=== PATIENT | female | born 1935 | race Caucasian/White ===

== ENCOUNTER 2018-12-02 14:28 | Inpatient (IN) ==
[2018-12-02] MEDS ORDERED: 0.9 % Sodium Chloride 500 ML IVC ONE (14:48)
[2018-12-02 15:15] LABS: Hemoglobin 11.6 g/dL (11.5-15.4); Mean Corpuscular HGB Conc 32.2 g/dL (31.6-35.5); Mean Corpuscular Hemoglobin 31.3 pg (28.0-33.3); Mean Platelet Volume 11.3 fL (9.4-12.4); Platelet Count 161 K/mcL (140-400); Red Blood Count 3.71 M/mcL (3.82-4.97); Red Cell Distribution Width 12.3 % (11.5-14.5)
--- NOTE | 2018-12-02 15:22 | Emergency Department Note ---
Disposition Clinical Impression: Acute exacerbation of chronic obstructive airways disease Community acquired pneumonia Qualifiers: Laterality: unspecified laterality Qualified Code(s): J18.9 - Pneumonia, unspecified organism Disposition: Admitted As Inpatient Condition: Good General Adult HPI - General Chief complaint: ED Shortness of Breath/Dyspnea Stated complaint: REVA/flu like symptoms Time Seen by Provider: 12/02/18 14:38 Source: patient, EMS Limitations: no limitations Nursing Notes Reviewed: Yes Vital Signs Reviewed: Yes - History of Present Illness HPI Narrative: Patient presents from the primary care office and she does not have COPD and does not use home oxygen and she has had several days of cough productive of clear sputum without hemoptysis and shortness of breath which is worse with exertion and denies any chest pain. No pain or swelling of the lower extremities. No blood in the urine or stool. No dysuria. Does have rhinorrhea and sneezing also. She has felt warm but has not recorded a fever and is using a breathing machine but is not taking and has not taken any antibiotics. Social history: Never smoked Pain Scale: 0 - Related Data Home Medications Medication Instructions Recorded Confirmed RX: Temazepam [Restoril] 15 mg PO HS 11/08/15 12/02/18 RX: Albuterol Sulfate [Proair Hfa] 2 puff IH Q6H PRN 12/02/18 12/02/18 Previous Rx's Medication Instructions Recorded RX: Benzonatate [Tessalon] 200 mg PO TID PRN 4 Days #12 12/06/18 capsule RX: GuaiFENesin ER [Mucinex] 1,200 mg PO BID 4 Days #8 tbbp.12hr 12/06/18 RX: Warfarin [Coumadin] 2.5 mg PO DAILY #0 12/06/18 predniSONE [PredniSONE] 10 mg PO DAILY 3 Days #7 tablet 12/06/18 Allergies Allergy/AdvReac Type Severity Reaction Status Date / Time No Known Allergies Allergy Verified 10/13/18 09:00 Review of Systems: Rew warm but has not recorded fever, no blurred vision. Does have rhinorrhea, cough, sneezing. No blood in the urine or stool. No pain or swelling or numbness of the extremities. No skin rash or bruising of the scan Past Medical History - Past Medical History Medical history: Reports: non-contributory, DVT, hypertension Surgical history: Reports: cholecystectomy, hysterectomy Psychiatric history: Reports: no psych history - Social History Smoking Status: Never smoker Smokeless Tobacco Status: No Alcohol use: Reports: none Drug use: Reports: none Physical Exam CONSTITUTIONAL: Alert and oriented X3, well-nourished, well appearing, in no apparent distress, oxygen saturation is ranging between 86 and 95% on room air. The patient does feel warm HEAD: Normocephalic; atraumatic. EYES: PERRL, no scleral icterus. NOSE: The nose is normal in appearance without rhinorrhea RESP: Normal chest excursion with respiration; breath sounds clear and equal bilaterally; no wheezes, rhonchi, or rales CARD: Regular rhythm, without murmurs, rub or gallop ABD: Non-distended; non-tender, soft,without rigidity, rebound or guarding SKIN: Normal for age and race; warm and dry; no apparent lesions extremities: No pain or swelling of the lower extremities. No erythema or signs of infection - General Limitations: no limitations General appearance: alert, in no apparent distress Course Vital Signs Temperature 99.6 F 12/02/18 14:34 Pulse Rate 65 12/02/18 14:34 Respiratory Rate 18 12/02/18 14:34 Blood Pressure 96/54 12/02/18 14:34 O2 Sat by Pulse Oximetry 96 12/02/18 14:34 Temperature 97.9 F 12/06/18 08:00 Pulse Rate 39 12/06/18 08:00 Respiratory Rate 18 12/06/18 08:00 Blood Pressure 138/54 12/06/18 08:00 O2 Sat by Pulse Oximetry 96 12/06/18 09:11 Oxygen Delivery Oxygen Delivery Nasal Cannula Medical Decision Making - [facility] Narrative Medical decision making narrative: The patient will receive antibiotics for community acquired pneumonia. She is not then admitted to the healthcare facility recently. No recent travel. Has been exposed to her son who lives next door and he has had upper respiratory symptoms over the last several weeks and the patient will be admitted. Blood pressure is moderately low and was she will receive IV fluids. Lactate level is also pending. 1522 I did review the patient's test results and I also spoke with the hospitalist who accepts the patient for admission. Flu swab is pending and urinalysis is positive Tamiflu would not be expected to be helpful she has had symptoms for over 48 hours. I have started medicines for community-acquired pneumonia as the patient clinically does have cough, shortness of breath and hypoxemia and she was sent here from the primary care physician office and we will watch her closely to ensure she does not decompensate while in the hospital. 1827 I did review the EKG showing normal sinus rhythm with rate of 72 and without acute ischemic change - Medical Records Medical records reviewed: Yes I reviewed the patient's medical records. - Lab Data Lab results reviewed: Yes I reviewed the patient's lab results. Result diagrams: 12/05/18 07:06 12/05/18 07:06 Lab Results 12/02/18 12/02/18 12/02/18 Range/Units 14:56 14:56 14:56 WBC 6.1 (4.3-11.1) K/mcL RBC 3.71 L (3.82-4.97) M/mcL Hgb 11.6 (11.5-15.4) g/dL Hct 36.0 (35.3-44.9) % MCV 97.0 (83.0-100.0) fL MCH 31.3 (28.0-33.3) pg MCHC 32.2 (31.6-35.5) g/dL RDW 12.3 (11.5-14.5) % Plt Count 161 (140-400) K/mcL MPV 11.3 (9.4-12.4) fL Immature Gran % (0-4) % Seg Neutrophils % % Lymphocytes % % Monocytes % % Eosinophils % % Basophils % % Neutrophils # (1.6-8.9) K/mcL Lymphocytes # (0.6-4.6) K/mcL Monocytes # (0.0-1.3) K/mcL Eosinophils # (0.0-0.6) K/mcL Basophils # (0.0-0.2) K/mcL PT (9.4-12.1) Seconds INR Sodium 139 (136-145) mEq/L Potassium 3.9 (3.5-5.1) mEq/L Chloride 104 (98-107) mEq/L Carbon Dioxide 30 H (23-29) mEq/L BUN 27 H (8-23) mg/dL Creatinine 0.89 (0.60-1.20) mg/dL Est GFR ( Amer) > 60 (> 60) Est GFR (Non-Af Amer) > 60 (> 60) BUN/Creatinine Ratio 30 H (6-26) Glucose 111 H (70-105) mg/dL Calculated Osmolality 294 (280-300) Lactic Acid 1.1 (0.5-2.2) mmol/L Calcium 8.7 (8.6-10.3) mg/dL Troponin I < 0.03 (< 0.04) ng/mL Chlamy pneumoniae PCR (Not Detect) Adenovirus (PCR) (Not Detect) B. pertussis DNA (PCR) (Not Detect) B.parapertussis DNA PCR (Not Detect) Coronavirus OC43 (PCR) (Not Detect) Coronavirus HKU1 (PCR) (Not Detect) Coronavirus 229E (PCR) (Not Detect) Coronavirus NL63 (PCR) (Not Detect) Human Metapneumovir PCR (Not Detect) Influenza A (H1) PCR (Not Detect) Influ A (H1N1/09) PCR (Not Detect) Influenza A (H3) PCR (Not Detect) Influenza A Untype (PCR) (Not Detect) Influenza Type B (PCR) (Not Detect) M.pneumoniae DNA (PCR) (Not Detect) Parainfluenza 1 (PCR) (Not Detect) Parainfluenza 2 (PCR) (Not Detect) Parainfluenza 3 (PCR) (Not Detect) Parainfluenza 4 (PCR) (Not Detect) RSV (PCR) (Not Detect) Entero/Rhino (PCR) (Not Detect) 12/02/18 12/03/18 12/03/18 Range/Units 14:56 00:46 08:24 WBC (4.3-11.1) K/mcL RBC (3.82-4.97) M/mcL Hgb (11.5-15.4) g/dL Hct (35.3-44.9) % MCV (83.0-100.0) fL MCH (28.0-33.3) pg MCHC (31.6-35.5) g/dL RDW (11.5-14.5) % Plt Count (140-400) K/mcL MPV (9.4-12.4) fL Immature Gran % (0-4) % Seg Neutrophils % % Lymphocytes % % Monocytes % % Eosinophils % % Basophils % % Neutrophils # (1.6-8.9) K/mcL Lymphocytes # (0.6-4.6) K/mcL Monocytes # (0.0-1.3) K/mcL Eosinophils # (0.0-0.6) K/mcL Basophils # (0.0-0.2) K/mcL PT 30.8 H (9.4-12.1) Seconds INR 2.7 Sodium 138 (136-145) mEq/L Potassium 4.1 (3.5-5.1) mEq/L Chloride 105 (98-107) mEq/L Carbon Dioxide 27 (23-29) mEq/L BUN 24 H (8-23) mg/dL Creatinine 0.87 (0.60-1.20) mg/dL Est GFR ( Amer) > 60 (> 60) Est GFR (Non-Af Amer) > 60 (> 60) BUN/Creatinine Ratio 28 H (6-26) Glucose 176 H (70-105) mg/dL Calculated Osmolality 294 (280-300) Lactic Acid (0.5-2.2) mmol/L Calcium 8.5 L (8.6-10.3) mg/dL Troponin I (< 0.04) ng/mL Chlamy pneumoniae PCR Not Detected (Not Detect) Adenovirus (PCR) Not Detected (Not Detect) B. pertussis DNA (PCR) Not Detected (Not Detect) B.parapertussis DNA PCR Not Detected (Not Detect) Coronavirus OC43 (PCR) Not Detected (Not Detect) Coronavirus HKU1 (PCR) Not Detected (Not Detect) Coronavirus 229E (PCR) Not Detected (Not Detect) Coronavirus NL63 (PCR) Not Detected (Not Detect) Human Metapneumovir PCR Not Detected (Not Detect) Influenza A (H1) PCR Not Detected (Not Detect) Influ A (H1N1/09) PCR DETECTED A (Not Detect) Influenza A (H3) PCR Not Detected (Not Detect) Influenza A Untype (PCR) Not Detected (Not Detect) Influenza Type B (PCR) Not Detected (Not Detect) M.pneumoniae DNA (PCR) Not Detected (Not Detect) Parainfluenza 1 (PCR) Not Detected (Not Detect) Parainfluenza 2 (PCR) Not Detected (Not Detect) Parainfluenza 3 (PCR) Not Detected (Not Detect) Parainfluenza 4 (PCR) Not Detected (Not Detect) RSV (PCR) Not Detected (Not Detect) Entero/Rhino (PCR) Not Detected (Not Detect) 12/03/18 12/04/18 12/04/18 Range/Units 08:24 07:54 07:54 WBC 5.6 9.3 D (4.3-11.1) K/mcL RBC 3.69 L 3.52 L (3.82-4.97) M/mcL Hgb 11.7 10.9 L (11.5-15.4) g/dL Hct 35.5 34.0 L (35.3-44.9) % MCV 96.2 96.6 (83.0-100.0) fL MCH 31.7 31.0 (28.0-33.3) pg MCHC 33.0 32.1 (31.6-35.5) g/dL RDW 12.0 12.0 (11.5-14.5) % Plt Count 166 172 (140-400) K/mcL MPV 11.3 11.7 (9.4-12.4) fL Immature Gran % 0.5 0.6 (0-4) % Seg Neutrophils % 83.9 79.2 % Lymphocytes % 13.8 12.8 % Monocytes % 1.6 7.4 % Eosinophils % 0.0 0.0 % Basophils % 0.2 0.0 % Neutrophils # 4.7 7.4 (1.6-8.9) K/mcL Lymphocytes # 0.8 1.2 (0.6-4.6) K/mcL Monocytes # 0.1 0.7 (0.0-1.3) K/mcL Eosinophils # 0.0 0.0 (0.0-0.6) K/mcL Basophils # 0.0 0.0 (0.0-0.2) K/mcL PT (9.4-12.1) Seconds INR Sodium 141 (136-145) mEq/L Potassium 4.1 (3.5-5.1) mEq/L Chloride 108 H (98-107) mEq/L Carbon Dioxide 27 (23-29) mEq/L BUN 24 H (8-23) mg/dL Creatinine 0.75 (0.60-1.20) mg/dL Est GFR ( Amer) > 60 (> 60) Est GFR (Non-Af Amer) > 60 (> 60) BUN/Creatinine Ratio 32 H (6-26) Glucose 108 H (70-105) mg/dL Calculated Osmolality 297 (280-300) Lactic Acid (0.5-2.2) mmol/L Calcium 8.5 L (8.6-10.3) mg/dL Troponin I (< 0.04) ng/mL Chlamy pneumoniae PCR (Not Detect) Adenovirus (PCR) (Not Detect) B. pertussis DNA (PCR) (Not Detect) B.parapertussis DNA PCR (Not Detect) Coronavirus OC43 (PCR) (Not Detect) Coronavirus HKU1 (PCR) (Not Detect) Coronavirus 229E (PCR) (Not Detect) Coronavirus NL63 (PCR) (Not Detect) Human Metapneumovir PCR (Not Detect) Influenza A (H1) PCR (Not Detect) Influ A (H1N1/09) PCR (Not Detect) Influenza A (H3) PCR (Not Detect) Influenza A Untype (PCR) (Not Detect) Influenza Type B (PCR) (Not Detect) M.pneumoniae DNA (PCR) (Not Detect) Parainfluenza 1 (PCR) (Not Detect) Parainfluenza 2 (PCR) (Not Detect) Parainfluenza 3 (PCR) (Not Detect) Parainfluenza 4 (PCR) (Not Detect) RSV (PCR) (Not Detect) Entero/Rhino (PCR) (Not Detect) 12/04/18 Range/Units 07:54 WBC (4.3-11.1) K/mcL RBC (3.82-4.97) M/mcL Hgb (11.5-15.4) g/dL Hct (35.3-44.9) % MCV (83.0-100.0) fL MCH (28.0-33.3) pg MCHC (31.6-35.5) g/dL RDW (11.5-14.5) % Plt Count (140-400) K/mcL MPV (9.4-12.4) fL Immature Gran % (0-4) % Seg Neutrophils % % Lymphocytes % % Monocytes % % Eosinophils % % Basophils % % Neutrophils # (1.6-8.9) K/mcL Lymphocytes # (0.6-4.6) K/mcL Monocytes # (0.0-1.3) K/mcL Eosinophils # (0.0-0.6) K/mcL Basophils # (0.0-0.2) K/mcL PT 60.8 H* D (9.4-12.1) Seconds INR 5.4 H* D Sodium (136-145) mEq/L Potassium (3.5-5.1) mEq/L Chloride (98-107) mEq/L Carbon Dioxide (23-29) mEq/L BUN (8-23) mg/dL Creatinine (0.60-1.20) mg/dL Est GFR ( Amer) (> 60) Est GFR (Non-Af Amer) (> 60) BUN/Creatinine Ratio (6-26) Glucose (70-105) mg/dL Calculated Osmolality (280-300) Lactic Acid (0.5-2.2) mmol/L Calcium (8.6-10.3) mg/dL Troponin I (< 0.04) ng/mL Chlamy pneumoniae PCR (Not Detect) Adenovirus (PCR) (Not Detect) B. pertussis DNA (PCR) (Not Detect) B.parapertussis DNA PCR (Not Detect) Coronavirus OC43 (PCR) (Not Detect) Coronavirus HKU1 (PCR) (Not Detect) Coronavirus 229E (PCR) (Not Detect) Coronavirus NL63 (PCR) (Not Detect) Human Metapneumovir PCR (Not Detect) Influenza A (H1) PCR (Not Detect) Influ A (H1N1/09) PCR (Not Detect) Influenza A (H3) PCR (Not Detect) Influenza A Untype (PCR) (Not Detect) Influenza Type B (PCR) (Not Detect) M.pneumoniae DNA (PCR) (Not Detect) Parainfluenza 1 (PCR) (Not Detect) Parainfluenza 2 (PCR) (Not Detect) Parainfluenza 3 (PCR) (Not Detect) Parainfluenza 4 (PCR) (Not Detect) RSV (PCR) (Not Detect) Entero/Rhino (PCR) (Not Detect) - Radiology Data Radiology results reviewed: Yes I reviewed the patient's radiology results.
[2018-12-02 15:32] LABS: BUN/Creatinine Ratio 30 (6-26); Blood Urea Nitrogen 27 mg/dL (8-23); Calcium 8.7 mg/dL (8.6-10.3); Carbon Dioxide 30 mEq/L (23-29); Chloride 104 mEq/L (98-107); Glucose 111 mg/dL (70-105); Osmolality,Calculated 294 (280-300); Potassium 3.9 mEq/L (3.5-5.1); Sodium 139 mEq/L (136-145); eGFR For Non-African Americans > 60 (> 60)
[2018-12-02 15:39] LABS: Troponin I < 0.03 ng/mL (< 0.04)
[2018-12-02] MEDS ORDERED: Azithromycin 500 MG in D5% in Water 250 ML IVPB ONE (15:46)
[2018-12-02] MEDS ORDERED: cefTRIAXone 1,000 MG in Water for inj. (sterile) 20 ML 10 ML IVPB ONE (15:46)
[2018-12-02 16:17] LABS: INR 2.7; Prothrombin Time 30.8 Seconds (9.4-12.1)
--- NOTE | 2018-12-02 18:42 | Internal Med History&Physical ---
Date of Encounter: 12/02/18 Time of Encounter: 18:42 Internal Medicine - H&P: HPI History of present illness: Ms. Radford is a 83 year old female with history of DVTs on coumadin, hypertension presented to ED from PCP request because of worsening SOB. Patient has been having several days of cough, congestion, sinus pressure. She has had some dizziness as well. She denies fevers/chills. Sick contacts include her son. She denies chest pain, numbness/tingling, palpitations. Past Med Surg Social Fam HX - Past Medical History Medical history: non-contributory, DVT, hypertension Additional medical history: insomnia Psychiatric history: no psych history - Past Surgical History Surgical History: cholecystectomy, hysterectomy - Social History Smoking Status: Never smoker Smokeless Tobacco Status: No Alcohol use: none Drug use: none Internal Medicine - H&P: Meds Temazepam [Restoril] 15 mg PO HS 11/08/15 [History] Warfarin [Coumadin] 2.5 mg PO DAILY 10/05/18 [History] Albuterol Sulfate [Proair Hfa] 2 puff IH Q6H PRN 12/02/18 [History] Doxycycline Hyclate [Morgidox] 100 mg PO BID 12/02/18 [History] Allergy/AdvReac Type Severity Reaction Status Date / Time No Known Allergies Allergy Verified 10/13/18 09:00 All Systems PM: A 10-system review of systems was performed and is negative for pertinent findings except as documented above in the HPI. - Constitutional Vitals: Temp Pulse Resp BP Pulse Ox 99.3 F 71 18 96/62 95 12/02/18 15:33 12/02/18 18:00 12/02/18 14:34 12/02/18 18:00 12/02/18 14:44 Exam: Gen: NAD, AAO x3 HEENT: + clear nasal discharge, + sinus tenderness, mucus moist. CVS: RRR, 2+ radial pulses equal bilaterally, 2+ tibial pulses equal bilaterally. Lungs: Coarse breath sounds throughout, there is end expiratory wheezing both lower lung dimas, no rales. Abd: soft, nt/nd Ext: no cyanosis, no edema Internal Med - H&P Results - Labs CBC & Chem 7: 12/02/18 14:56 12/02/18 14:56 Labs: Short CBC 12/02/18 Range/Units 14:56 WBC 6.1 (4.3-11.1) K/mcL Hgb 11.6 (11.5-15.4) g/dL Hct 36.0 (35.3-44.9) % Plt Count 161 (140-400) K/mcL BMP 12/02/18 14:56 Sodium 139 Potassium 3.9 Chloride 104 Carbon Dioxide 30 H BUN 27 H Creatinine 0.89 Glucose 111 H Calcium 8.7 Cardiac Enzymes 12/02/18 Range/Units 14:56 Troponin I < 0.03 (< 0.04) ng/mL - Impressions ITS Impressions Chest X-Ray 12/02/18 14:38 IMPRESSION: No acute cardiopulmonary disease D/ / Issac Ervin MD / Issac Ervin MD Interpreting Provider: Issac Ervin MD - Assessment and plan (1) Acute respiratory distress Current Visit: Yes Status: Acute Assessment and plan: Secondary to upper and or lower respiratory tract infection. Chest x-ray negative, troponin negative, EKG unremarkable with no ST/T wave changes. Lactic acid normal. Patient with chronic coughing on exam and excessive mucus production. She is having some wheezing and tight breath sounds. She had brief episode of hypoxia in ED and will need close monitoring while giving supportive care. - Continue Rocephin/Azithromycin - Mucinex - Prednisone - Albuterol neb prn - resp panel. (2) Hypertension Current Visit: Yes Status: Acute Assessment and plan: Patient is not on any home medications for this. BP is currently in lower normal limits, will benefit from IV fluids. Qualifiers: Hypertension type: essential hypertension Qualified Code(s): I10 - Essential (primary) hypertension (3) Anemia Current Visit: No Status: Acute Assessment and plan: Stable, at baseline Qualifiers: Anemia type: unspecified type Qualified Code(s): D64.9 - Anemia, unspecif ied (4) History of DVT (deep vein thrombosis) Current Visit: Yes Status: Acute Assessment and plan: Patient is on coumadin, INR therapeutic. (5) DVT prophylaxis Current Visit: Yes Status: Acute Assessment and plan: Patient is on coumadin and is therapeutic with INR 2.7. - Time Spent With Patient Total time spent is greater than 50% in coordination of care (as documented) at patient's floor/unit and/or counseling patient:
[2018-12-02] MEDS ORDERED: Naloxone 0.4 MG/ML INJ IVP PRN (18:53)
[2018-12-02] MEDS ORDERED: Acetaminophen 325 MG TABLET PO PRN (18:53)
[2018-12-02] MEDS ORDERED: traMADol 50 MG TABLET PO PRN (18:53)
[2018-12-02] MEDS ORDERED: Melatonin 3 MG TABLET PO PRN (18:56)
[2018-12-02] MEDS ORDERED: Ipratropium/Albuterol Neb 3 ML IH PRN (18:56)
[2018-12-02] MEDS ORDERED: 0.9 % Sodium Chloride 1,000 ML IVC SCH (19:00)
[2018-12-02] MEDS: Temazepam 15 MG CAPSULE PO SCH (22:36)
[2018-12-02] MEDS: predniSONE 20 MG TABLET PO SCH (22:37)
[2018-12-02] MEDS: *HR* Warfarin 2.5 MG TABLET PO SCH (22:37)
[2018-12-02] MEDS ORDERED: 0.9 % Sodium Chloride 500 ML IV SCH (22:39)
[2018-12-03 03:51] LABS: Adenovirus Not Detected (Not Detect); Bordetella Pertussis Not Detected (Not Detect); Chlamydophila pneumoniae Not Detected (Not Detect); Coronavirus 229E Not Detected (Not Detect); Coronavirus HKU1 Not Detected (Not Detect); Coronavirus NL63 Not Detected (Not Detect); Coronavirus OC43 Not Detected (Not Detect); Human Metapneumovirus Not Detected (Not Detect); Human Rhinovirus/Enterovirus Not Detected (Not Detect); Influenza A Subtype 2009 H1 DETECTED (Not Detect); Influenza A Untypeable Not Detected (Not Detect); Influenza B Not Detected (Not Detect); Mycoplasma pneumoniae Not Detected (Not Detect); Parainfluenza Virus 1 Not Detected (Not Detect); Parainfluenza Virus 2 Not Detected (Not Detect); Parainfluenza Virus 3 Not Detected (Not Detect); Parainfluenza Virus 4 Not Detected (Not Detect); Respiratory Syncytial Virus Not Detected (Not Detect)
[2018-12-03 08:36] LABS: Basophils % 0.2 %; Hematocrit 35.5 % (35.3-44.9); Hemoglobin 11.7 g/dL (11.5-15.4); Immature Granulocytes % 0.5 % (0-4); Lymphocytes # 0.8 K/mcL (0.6-4.6); Lymphocytes % 13.8 %; Mean Corpuscular Hemoglobin 31.7 pg (28.0-33.3); Mean Corpuscular Volume 96.2 fL (83.0-100.0); Mean Platelet Volume 11.3 fL (9.4-12.4); Monocytes # 0.1 K/mcL (0.0-1.3); Monocytes % 1.6 %; Neutrophils # 4.7 K/mcL (1.6-8.9); Platelet Count 166 K/mcL (140-400); Red Blood Count 3.69 M/mcL (3.82-4.97); Segmented Neutrophils % 83.9 %
[2018-12-03 08:54] LABS: BUN/Creatinine Ratio 28 (6-26); Blood Urea Nitrogen 24 mg/dL (8-23); Calcium 8.5 mg/dL (8.6-10.3); Carbon Dioxide 27 mEq/L (23-29); Chloride 105 mEq/L (98-107); Glucose 176 mg/dL (70-105); Osmolality,Calculated 294 (280-300); Potassium 4.1 mEq/L (3.5-5.1); Sodium 138 mEq/L (136-145); eGFR For Non-African Americans > 60 (> 60)
[2018-12-03] MEDS: predniSONE 20 MG TABLET PO SCH (08:55)
[2018-12-03] MEDS: cefTRIAXone 1,000 MG in Water for inj. (sterile) 20 ML 10 ML IVP SCH (08:56)
[2018-12-03] MEDS: Azithromycin 250 MG TABLET PO SCH (08:56)
[2018-12-03] MEDS: Benzonatate 100 MG CAPSULE PO PRN (08:58)
--- NOTE | 2018-12-03 12:09 | Internal Med Progress Note ---
<Valarie Holley - Last Filed: 12/03/18 12:01> Hospitalist Progress Note - Encounter Date of Encounter: 12/03/18 Time of Encounter: 08:30 - Subjective Interval History: Ms. Radford was seen at bedside this morning. She was resting comfortably. Her vitals are reviewed and she had remained afebrile overnight. She noted her symptoms began 6 days ago she was coughing and felt fatigued. Her PCP prescribed her inhaler 3 days ago to worsening of her shortness of breath and lack of energy she was in the ED yesterday. This morning she noted her shortness of breath has slightly improved. She also has less fatigue since her onset of symptoms 6 days ago. She said her appetite is still decreased. She denied fever, chills, nausea, emesis, chest pain, shortness of breath at rest, abdominal pain or changes in bowels. - Exam Vitals: Temp Pulse Resp BP Pulse Ox 97.6 F 57 16 93/51 90 12/03/18 10:59 12/03/18 10:59 12/03/18 10:59 12/03/18 10:59 12/03/18 10:59 Exam: General: no acute distress, comfortable in bed HEENT: Head atraumatic, normocephalic, moist mucus membrane Neck: no tracheal deviation Cardiovascualr: Regular rhythm, no pedal edema, no murmurs or gallops Lungs: Coarse breath sounds all lung lobes, expiratory wheezing in both lower l tony dimas, no rales Abdomen: Soft nontender, nondistended positive bowel sounds Skin: warm and dry, absent rash, absent open wounds and nodules MSK: absent clubbing, cyanosis, joints without swelling Neuro: alert and oriented x 3 Psych: Thought content congruent - Assessment and Plan (1) Acute respiratory distress Current Visit: Yes Status: Resolved Assessment and Plan: Secondary influenza A. Chest x-ray negative, troponin negative, EKG unremarkable with no ST/T wave changes. Lactic acid normal. Patient with chronic coughing on exam and excessive mucus production. She is having some wheezing and tight breath sounds. She had brief episode of hypoxia in ED and will need close monitoring while giving supportive care. - Continue Rocephin/Azithromycin - Mucinex - Prednisone - Albuterol neb prn -Continue Tamiflu (2) Hypertension Current Visit: Yes Status: Acute Assessment and Plan: Stable at this time. Patient is not on any home medications for this. Previous history noted earlier in 2018 with some episodes of hypertension. Her blood pressure could be normal at this time given the infection. -Continue IV fluids -Continue to monitor (3) History of DVT (deep vein thrombosis) Current Visit: Yes Status: Acute Assessment and Plan: Patient is on coumadin, INR therapeutic. (4) DVT prophylaxis Current Visit: Yes Status: Acute Assessment and Plan: Patient is on coumadin and is therapeutic with INR 2.7. (5) Influenza A (H1N1) Current Visit: Yes Status: Acute Assessment and Plan: Complained of shortness of breath and fatigue ongoing since 11/28/18. She had not received her flu vaccine this year. At admission she required 2 L of supplemental oxygen. This morning she is comfortable in room air. Her white blood cell count is within normal limits. -Respiratory panel was positive for influenza A (H1 N1) -Started Tamiflu day 1 of 5 -Continue supportive therapy -Has IV fluids running -Continue prednisone -Continue azithromycin -Continue DuoNeb's when necessary - Time Spent with Patient Total time spent is greater than 50% in coordination of care (as documented) at patient's floor/unit and/or counseling patient: Internal Medicine: Result - Labs CBC & Chem 7: 12/03/18 08:24 12/03/18 08:24 Labs: Short CBC 12/02/18 12/03/18 Range/Units 14:56 08:24 WBC 6.1 5.6 (4.3-11.1) K/mcL Hgb 11.6 11.7 (11.5-15.4) g/dL Hct 36.0 35.5 (35.3-44.9) % Plt Count 161 166 (140-400) K/mcL Neutrophils # 4.7 (1.6-8.9) K/mcL BMP 12/02/18 12/03/18 14:56 08:24 Sodium 139 138 Potassium 3.9 4.1 Chloride 104 105 Carbon Dioxide 30 H 27 BUN 27 H 24 H Creatinine 0.89 0.87 Glucose 111 H 176 H Calcium 8.7 8.5 L Cardiac Enzymes 12/02/18 Range/Units 14:56 Troponin I < 0.03 (< 0.04) ng/mL - ABG Interpretation ABG results: PT/INR, D-dimer PT 30.8 Seconds (9.4-12.1) H 12/02/18 14:56 - Impressions Impressions Chest X-Ray 12/02/18 14:38 IMPRESSION: No acute cardiopulmonary disease D/ / Issac Ervin MD / Issac Ervin MD Interpreting Provider: Issac Ervin MD Consult Discharge Plan - Plan Referrals: Kristen Jarrell ENTERTAINMENT REPORTER [Primary Care Provider] - <Rose Hamilton - Last Filed: 12/03/18 13:28> Hospitalist Progress Note - Encounter Date of Encounter: 12/03/18 - Exam Vitals: Temp Pulse Resp BP Pulse Ox 97.6 F 57 16 93/51 90 12/03/18 10:59 12/03/18 10:59 12/03/18 10:59 12/03/18 10:59 12/03/18 10:59 - Assessment and Plan (1) History of DVT (deep vein thrombosis) Current Visit: Yes Status: Acute (2) Hypertension Current Visit: Yes Status: Acute (3) Acute respiratory distress Current Visit: Yes Status: Resolved (4) DVT prophylaxis Current Visit: Yes Status: Acute (5) Influenza A (H1N1) Current Visit: Yes Status: Acute - Time Spent with Patient Total time spent is greater than 50% in coordination of care (as documented) at patient's floor/unit and/or counseling patient: Internal Medicine: Result - Labs CBC & Chem 7: 12/03/18 08:24 12/03/18 08:24 Labs: Short CBC 12/02/18 12/03/18 Range/Units 14:56 08:24 WBC 6.1 5.6 (4.3-11.1) K/mcL Hgb 11.6 11.7 (11.5-15.4) g/dL Hct 36.0 35.5 (35.3-44.9) % Plt Count 161 166 (140-400) K/mcL Neutrophils # 4.7 (1.6-8.9) K/mcL BMP 12/02/18 12/03/18 14:56 08:24 Sodium 139 138 Potassium 3.9 4.1 Chloride 104 105 Carbon Dioxide 30 H 27 BUN 27 H 24 H Creatinine 0.89 0.87 Glucose 111 H 176 H Calcium 8.7 8.5 L Cardiac Enzymes 12/02/18 Range/Units 14:56 Troponin I < 0.03 (< 0.04) ng/mL - ABG Interpretation ABG results: PT/INR, D-dimer PT 30.8 Seconds (9.4-12.1) H 12/02/18 14:56 - Impressions Impressions Chest X-Ray 12/02/18 14:38 IMPRESSION: No acute cardiopulmonary disease D/ / Issac Ervin MD / Issac Ervin MD Interpreting Provider: Issac Ervin MD - Attending Attestation I have examined this patient and my medical decision-making was reviewed with the Resident Physician. I agree with the documented findings, disposition and treatment plan as described except to the extent set forth below. <KishanValarie - Last Filed: 12/03/18 12:01> (2) Hypertension Qualifiers: Hypertension type: essential hypertension Qualified Code(s): I10 - Essential (primary) hypertension <Triston Hamilton Rhealverto - Last Filed: 12/03/18 13:28> (2) Hypertension Qualifiers: Hypertension type: essential hypertension Qualified Code(s): I10 - Essential (primary) hypertension
[2018-12-03] MEDS ORDERED: 0.9 % Sodium Chloride 500 ML IVC SCH ×2 (12:15→14:15)
[2018-12-03] MEDS: *HR* Warfarin 2.5 MG TABLET PO SCH (17:37)
[2018-12-03] MEDS: Temazepam 15 MG CAPSULE PO SCH (22:28)
[2018-12-04] MEDS: Benzonatate 100 MG CAPSULE PO PRN ×3 (06:23→21:16)
[2018-12-04 08:34] LABS: Hemoglobin 10.9 g/dL (11.5-15.4); Immature Granulocytes % 0.6 % (0-4); Lymphocytes # 1.2 K/mcL (0.6-4.6); Lymphocytes % 12.8 %; Mean Corpuscular HGB Conc 32.1 g/dL (31.6-35.5); Mean Corpuscular Volume 96.6 fL (83.0-100.0); Mean Platelet Volume 11.7 fL (9.4-12.4); Monocytes # 0.7 K/mcL (0.0-1.3); Monocytes % 7.4 %; Platelet Count 172 K/mcL (140-400); Red Blood Count 3.52 M/mcL (3.82-4.97); Segmented Neutrophils % 79.2 %
[2018-12-04 08:35] LABS: Neutrophils # 7.4 K/mcL (1.6-8.9)
[2018-12-04 08:43] LABS: INR 5.4; Prothrombin Time 60.8 Seconds (9.4-12.1)
[2018-12-04 08:53] LABS: BUN/Creatinine Ratio 32 (6-26); Blood Urea Nitrogen 24 mg/dL (8-23); Calcium 8.5 mg/dL (8.6-10.3); Carbon Dioxide 27 mEq/L (23-29); Chloride 108 mEq/L (98-107); Glucose 108 mg/dL (70-105); Osmolality,Calculated 297 (280-300); Potassium 4.1 mEq/L (3.5-5.1); Sodium 141 mEq/L (136-145); eGFR For Non-African Americans > 60 (> 60)
[2018-12-04] MEDS ORDERED: 0.9 % Sodium Chloride 500 ML IVC SCH ×2 (09:15→09:30)
[2018-12-04] MEDS: predniSONE 20 MG TABLET PO SCH (09:16)
[2018-12-04] MEDS: Azithromycin 250 MG TABLET PO SCH (09:20)
--- NOTE | 2018-12-04 10:07 | Internal Med Progress Note ---
<Valarie Holley - Last Filed: 12/04/18 10:03> Hospitalist Progress Note - Encounter Date of Encounter: 12/04/18 Time of Encounter: 08:35 - Subjective Interval History: Ms. Radford was seen at bedside this morning. She was resting comfortably. She complained of ongoing fatigue. She was requiring 2 L nasal cannula. After supplemental oxygen was turned off her saturation dropped to 82%. She did complete part of her breakfast this morning but notes her appetite is still decreased. She denied fever, chills, nausea, emesis, chest pain, shortness of breath at rest, abdominal pain or changes in bowels. - Exam Vitals: Temp Pulse Resp BP Pulse Ox 97.4 F L 51 16 119/59 97 12/04/18 06:56 12/04/18 06:56 12/04/18 06:56 12/04/18 06:56 12/04/18 07:46 Exam: General: no acute distress, comfortable in bed HEENT: Head atraumatic, normocephalic, moist mucus membrane Neck: no tracheal deviation Cardiovascualr: Regular rhythm, no pedal edema, no murmurs or gallops Lungs: Clear to auscultation although decreased sounds Abdomen: Soft nontender, nondistended positive bowel sounds Skin: warm and dry, absent rash, absent open wounds and nodules MSK: absent clubbing, cyanosis, joints without swelling Neuro: alert and oriented x 3 Psych: Thought content congruent - Assessment and Plan (1) Acute respiratory distress Current Visit: Yes Status: Resolved Assessment and Plan: Not currently in respiratory distress but continues to require supplemental oxygen. Secondary influenza A. Chest x-ray negative, troponin negative, EKG unremarkable with no ST/T wave changes. She continues to have productive cough. She had brief episode of hypoxia in ED and will need close monitoring while giving supportive care. - Continue Azithromycin - Continue Mucinex - Prednisone - Albuterol neb prn - Continue Tamiflu - Incentive spirometery - Home oxygen evaluation (2) Hypertension Current Visit: Yes Status: Acute Assessment and Plan: Stable at this time. Patient is not on any home medications for this. Previous history noted earlier in 2018 with some episodes of hypertension. Her blood pressure could be normal at this time given the infection. -Continue to monitor (3) History of DVT (deep vein thrombosis) Current Visit: Yes Status: Acute Assessment and Plan: Holding dose of Coumadin today given her supratherapeutic INR. (4) DVT prophylaxis Current Visit: Yes Status: Acute Assessment and Plan: Patient is on coumadin INR supratherapeutic today at 5.4 (5) Influenza A (H1N1) Current Visit: Yes Status: Acute Assessment and Plan: Complained of shortness of breath and fatigue ongoing since 11/28/18. She is continuing to require supplemental oxygen. Her white blood cell count is within normal limits. Mucous membranes appear to be mildly dry. -Respiratory panel was positive for influenza A (H1 N1) -Started Tamiflu day 2 of 5 -Continue supportive therapy -Receiving gentle hydration -Continue prednisone -Continue azithromycin -Continue incentive spirometry -Continue moving up with assist -Continue DuoNeb's when necessary - Time Spent with Patient Total time spent is greater than 50% in coordination of care (as documented) at patient's floor/unit and/or counseling patient: Internal Medicine: Result - Labs CBC & Chem 7: 12/04/18 07:54 12/04/18 07:54 Labs: Short CBC 12/04/18 Range/Units 07:54 WBC 9.3 D (4.3-11.1) K/mcL Hgb 10.9 L (11.5-15.4) g/dL Hct 34.0 L (35.3-44.9) % Plt Count 172 (140-400) K/mcL Neutrophils # 7.4 (1.6-8.9) K/mcL BMP 12/04/18 07:54 Sodium 141 Potassium 4.1 Chloride 108 H Carbon Dioxide 27 BUN 24 H Creatinine 0.75 Glucose 108 H Calcium 8.5 L - ABG Interpretation ABG results: PT/INR, D-dimer PT 60.8 Seconds (9.4-12.1) H* D 12/04/18 07:54 Consult Discharge Plan - Plan Referrals: Kristen Jarrell CNP [Primary Care Provider] - <Rose Hamilton - Last Filed: 12/04/18 14:04> Hospitalist Progress Note - Encounter Date of Encounter: 12/04/18 - Exam Vitals: Temp Pulse Resp BP Pulse Ox 97.6 F 51 16 110/59 97 12/04/18 11:26 12/04/18 11:26 12/04/18 11:26 12/04/18 11:26 12/04/18 11:26 - Assessment and Plan (1) History of DVT (deep vein thrombosis) Current Visit: Yes Status: Acute (2) Hypertension Current Visit: Yes Status: Acute (3) Acute respiratory distress Current Visit: Yes Status: Resolved (4) DVT prophylaxis Current Visit: Yes Status: Acute (5) Influenza A (H1N1) Current Visit: Yes Status: Acute - Time Spent with Patient Total time spent is greater than 50% in coordination of care (as documented) at patient's floor/unit and/or counseling patient: Internal Medicine: Result - Labs CBC & Chem 7: 12/04/18 07:54 12/04/18 07:54 Labs: Short CBC 12/04/18 Range/Units 07:54 WBC 9.3 D (4.3-11.1) K/mcL Hgb 10.9 L (11.5-15.4) g/dL Hct 34.0 L (35.3-44.9) % Plt Count 172 (140-400) K/mcL Neutrophils # 7.4 (1.6-8.9) K/mcL BMP 12/04/18 07:54 Sodium 141 Potassium 4.1 Chloride 108 H Carbon Dioxide 27 BUN 24 H Creatinine 0.75 Glucose 108 H Calcium 8.5 L - ABG Interpretation ABG results: PT/INR, D-dimer PT 60.8 Seconds (9.4-12.1) H* D 12/04/18 07:54 - Attending Attestation I have examined this patient and my medical decision-making was reviewed with the Resident Physician. I agree with the documented findings, disposition and treatment plan as described except to the extent set forth below. Patient still requiring 2 L NC of O2, she is in no acute distress but is weak. On exam she has less rhinorrhea and breath sounds are more clear today. VS and labs reviewed, INR 5.2. Coumadin will be held today. DC antibiotics. Continue Tamiflu. Increase activity and I.S. Wean O2 as toelrated. <Valarie Holley - Last Filed: 12/04/18 10:03> (2) Hypertension Qualifiers: Hypertension type: essential hypertension Qualified Code(s): I10 - Essential (primary) hypertension <Rose Hamilton - Last Filed: 12/04/18 14:04> (2) Hypertension Qualifiers: Hypertension type: essential hypertension Qualified Code(s): I10 - Essential (primary) hypertension
[2018-12-04] MEDS: cefTRIAXone 1,000 MG in Water for inj. (sterile) 20 ML 10 ML IVP SCH (11:47)
[2018-12-04] MEDS: Temazepam 15 MG CAPSULE PO SCH (21:01)
[2018-12-05] MEDS: Benzonatate 100 MG CAPSULE PO PRN (04:28)
[2018-12-05 07:19] LABS: Basophils % 0.2 %; Hematocrit 33.8 % (35.3-44.9); Hemoglobin 11.1 g/dL (11.5-15.4); Lymphocytes # 1.6 K/mcL (0.6-4.6); Lymphocytes % 17.1 %; Mean Corpuscular HGB Conc 32.8 g/dL (31.6-35.5); Mean Corpuscular Hemoglobin 31.5 pg (28.0-33.3); Mean Platelet Volume 11.9 fL (9.4-12.4); Monocytes # 0.5 K/mcL (0.0-1.3); Monocytes % 5.3 %; Platelet Count 194 K/mcL (140-400); Red Blood Count 3.52 M/mcL (3.82-4.97); Red Cell Distribution Width 12.3 % (11.5-14.5); Segmented Neutrophils % 76.4 %
[2018-12-05 07:39] LABS: BUN/Creatinine Ratio 28 (6-26); Blood Urea Nitrogen 21 mg/dL (8-23); Calcium 8.6 mg/dL (8.6-10.3); Carbon Dioxide 27 mEq/L (23-29); Chloride 110 mEq/L (98-107); Glucose 95 mg/dL (70-105); Osmolality,Calculated 297 (280-300); Potassium 3.8 mEq/L (3.5-5.1); Sodium 142 mEq/L (136-145); eGFR For Non-African Americans > 60 (> 60)
[2018-12-05 07:47] LABS: Platelet Estimate Normal (Normal); Reactive Lymphocytes Present (Not Present)
[2018-12-05 08:05] LABS: INR 6.7
[2018-12-05] MEDS: Azithromycin 250 MG TABLET PO SCH (09:51)
[2018-12-05] MEDS: predniSONE 20 MG TABLET PO SCH (09:51)
--- NOTE | 2018-12-05 12:34 | Internal Med Progress Note ---
<Valarie Holley - Last Filed: 12/05/18 13:12> Hospitalist Progress Note - Encounter Date of Encounter: 12/05/18 Time of Encounter: 08:20 - Subjective Interval History: Ms. Radford was seen at bedside this morning. She was resting comfortably. She was on 1 L of oxygen today saturating at 95%. She noted her fatigue has improved but after her 6 minute walk test her oxygen saturation decreased to 87%. She denies any chest pain upon exertion. She denied fever, chills, nausea, emesis, chest pain, shortness of breath at rest, abdominal pain or changes in bowels. - Exam Vitals: Temp Pulse Resp BP Pulse Ox 97.5 F L 55 16 117/69 95 12/05/18 11:08 12/05/18 11:08 12/05/18 11:08 12/05/18 11:08 12/05/18 11:08 Exam: General: no acute distress, comfortable in bed HEENT: Head atraumatic, normocephalic, moist mucus membrane Neck: no tracheal deviation Cardiovascualr: Regular rhythm, no pedal edema, no murmurs or gallops Lungs: Clear to auscultation although decreased breath sounds in lower lung lobes Abdomen: Soft nontender, nondistended positive bowel sounds Skin: warm and dry, absent rash, absent open wounds and nodules MSK: absent clubbing, cyanosis, joints without swelling Neuro: alert and oriented x 3 Psych: Thought content congruent - Assessment and Plan (1) Acute respiratory distress Current Visit: Yes Status: Resolved Assessment and Plan: Not currently in respiratory distress but continues to require supplemental oxygen. Secondary influenza A. Chest x-ray negative, troponin negative, EKG unremarkable with no ST/T wave changes. She continues to have productive cough. She had brief episode of hypoxia in ED and will need close monitoring while giving supportive care. - Continue Azithromycin day 3 of 5 - Continue Mucinex - Continue Prednisone - Albuterol neb prn - Continue Tamiflu - Incentive spirometery - Qualifies for home oxygen requirement but will re evaluate prior to discharge (2) Hypertension Current Visit: Yes Status: Acute Assessment and Plan: Stable at this time. Patient is not on any home medications for this. Previous history noted earlier in 2018 with some episodes of hypertension. Her blood pressure could be normal at this time given the infection. -Continue to monitor (3) History of DVT (deep vein thrombosis) Current Visit: Yes Status: Acute Assessment and Plan: Pharmacy to dose coumadin. Currently INR is supratherapeutic. (4) DVT prophylaxis Current Visit: Yes Status: Acute Assessment and Plan: Patient is on coumadin INR supratherapeutic today at 6.7. Coumadin was held and is pharmacy to dose (5) Influenza A (H1N1) Current Visit: Yes Status: Acute Assessment and Plan: Complained of shortness of breath and fatigue ongoing since 11/28/18. She is continuing to require supplemental oxygen. Her white blood cell count is within normal limits. Mucous membranes appear to be mildly dry. -Respiratory panel was positive for influenza A (H1 N1) -Started Tamiflu day 3 of 5 -Continue supportive therapy -Receiving gentle hydration -Continue prednisone -Continue azithromycin day 3 of 5 -Continue incentive spirometry -Continue moving up with assist -Continue DuoNeb's when necessary - Time Spent with Patient Total time spent is greater than 50% in coordination of care (as documented) at patient's floor/unit and/or counseling patient: Internal Medicine: Result - Labs CBC & Chem 7: 12/05/18 07:06 12/05/18 07:06 Labs: Short CBC 12/05/18 Range/Units 07:06 WBC 9.1 (4.3-11.1) K/mcL Hgb 11.1 L (11.5-15.4) g/dL Hct 33.8 L (35.3-44.9) % Plt Count 194 (140-400) K/mcL Neutrophils # 7.0 (1.6-8.9) K/mcL BMP 12/05/18 07:06 Sodium 142 Potassium 3.8 Chloride 110 H Carbon Dioxide 27 BUN 21 Creatinine 0.75 Glucose 95 Calcium 8.6 - ABG Interpretation ABG results: PT/INR, D-dimer PT 76.0 Seconds (9.4-12.1) H* 12/05/18 07:06 Consult Discharge Plan - Plan Referrals: Kristen Jarrell CNP [Primary Care Provider] - <Rose Hamilton - Last Filed: 12/05/18 15:06> Hospitalist Progress Note - Encounter Date of Encounter: 12/05/18 - Exam Vitals: Temp Pulse Resp BP Pulse Ox 97.5 F L 55 16 117/69 95 12/05/18 11:08 12/05/18 11:08 12/05/18 11:08 12/05/18 11:08 12/05/18 11:08 - Assessment and Plan (1) History of DVT (deep vein thrombosis) Current Visit: Yes Status: Acute (2) Hypertension Current Visit: Yes Status: Acute (3) Acute respiratory distress Current Visit: Yes Status: Resolved (4) DVT prophylaxis Current Visit: Yes Status: Acute (5) Influenza A (H1N1) Current Visit: Yes Status: Acute - Time Spent with Patient Total time spent is greater than 50% in coordination of care (as documented) at patient's floor/unit and/or counseling patient: Internal Medicine: Result - Labs CBC & Chem 7: 12/05/18 07:06 12/05/18 07:06 Labs: Short CBC 12/05/18 Range/Units 07:06 WBC 9.1 (4.3-11.1) K/mcL Hgb 11.1 L (11.5-15.4) g/dL Hct 33.8 L (35.3-44.9) % Plt Count 194 (140-400) K/mcL Neutrophils # 7.0 (1.6-8.9) K/mcL BMP 12/05/18 07:06 Sodium 142 Potassium 3.8 Chloride 110 H Carbon Dioxide 27 BUN 21 Creatinine 0.75 Glucose 95 Calcium 8.6 - ABG Interpretation ABG results: PT/INR, D-dimer PT 76.0 Seconds (9.4-12.1) H* 12/05/18 07:06 - Attending Attestation I examined this patient and my medical decision-making was reviewed with the Resident Physician. I agree with the documented findings, disposition and treatment plan as described except to the extent set forth below. Patient doing well today. Better energy and appetite is slightly better though still low. She is requiring 1 L O2. Having difficulty weaning to room air. On physical exam, lungs more clear today, less rhinorrhea less sinus pressure. Ski n is warm and dry. Continue I.S. and encourage activity. Finish course of Tamiflu for + Flu A. <Valarie Holley - Last Filed: 12/05/18 13:12> (2) Hypertension Qualifiers: Hypertension type: essential hypertension Qualified Code(s): I10 - Essential (primary) hypertension <Rose Hamilton - Last Filed: 12/05/18 15:06> (2) Hypertension Qualifiers: Hypertension type: essential hypertension Qualified Code(s): I10 - Essential (primary) hypertension
--- NOTE | 2018-12-05 13:48 | Electrocardiograph Report ---
[address] [place], [place] [address] Test Date: 2018-12-02 Pat Name: Ignacia Radford Department: [id number] Room: 2A44 Gender: F Shipping Technician: : [id number] Requested By: Jordin Ayala Order Number: [id number] Reading MD: Shantel Carlisle Measurements Intervals [place] Rate: 72 P: 68 AL: 143 QRS: -42 QRSD: 91 T: 64 QT: 373 QTc: 409 Interpretive Statements Sinus rhythm Left axis deviation Nonspecific ST-T abnormalities Electronically Signed On 12-05-2018 13:46:27 EST by Shantel Carlisle
[2018-12-05] MEDS ORDERED: Warfarin perPT PO PRN (18:00)
[2018-12-05] MEDS: Temazepam 15 MG CAPSULE PO SCH (20:32)
[2018-12-06 06:57] LABS: INR 5.8; Prothrombin Time 65.9 Seconds (9.4-12.1)
[2018-12-06 08:00] VITALS: BP 138/54
--- NOTE | 2018-12-06 08:43 | Discharge Summary ---
<Valarie Holley - Last Filed: 12/06/18 08:40> - NOTES TO OUTPATIENT PROVIDER Notes to Outpatient Provider: Malina presented to ED complaining of shortness of breath and fatigue. She also had cough and congestion ongoing for a few days prior to her presentation. Her respiratory panel was positive for influenza A. she was started on Tamiflu and will be discharged with 2 days of Tamiflu and short course of prednisone. She needs to follow outpatient for an INR check as her partner has been supratherapeutic. Orders not resulted at time of discharge: Pending orders 12/07/18 04:00 PT/INR [Prothrombin Time INR] [COAG] AM 0400 12/08/18 04:00 PT/INR [Prothrombin Time INR] [COAG] AM 0400 12/09/18 04:00 PT/INR [Prothrombin Time INR] [COAG] AM 0400 12/10/18 04:00 PT/INR [Prothrombin Time INR] [COAG] AM 0400 Date of Encounter: 12/06/18 Time of Encounter: 08:00 - Discharge Diagnosis (1) Acute respiratory distress Priority: Secondary Status: Resolved (2) Hypertension Priority: Secondary Status: Acute Qualifiers: Hypertension type: essential hypertension Qualified Code(s): I10 - Essential (primary) hypertension (3) History of DVT (deep vein thrombosis) Priority: Secondary Status: Acute (4) DVT prophylaxis Priority: Secondary Status: Acute (5) Influenza A (H1N1) Priority: Primary Status: Acute Hospital course: Ms. Radford is a 83 year old female with past medical history of hypertension and DVT on Coumadin. She presented to the ED complaining of shortness of breath. She had been having cough and congestion for several days prior to presenting to the ED. In the ED her chest x-ray was within normal limits EKG no acute changes. She was started on empiric antibiotics Rocephin and azithromycin was prednisone. Respiratory panel was ordered which was positive for influenza A. S he was started on Tamiflu. She required supplemental oxygen during the first few days of admission has no longer required it for the past 24 hours. She completed her regimen of azithromycin. She will be discharged with 2 additional days of Tamiflu and short course of prednisone. She needs to follow outpatient for therapeutic INR as her INR has been elevated the past a few days. Discharge discussed with: patient - Time Spent with Patient Total time spent providing and/or coordinating discharge services: - Discharge Medications Prescriptions: Benzonatate [Tessalon] 200 mg PO TID PRN 4 Days #12 capsule PRN Reason: Cough GuaiFENesin ER [Mucinex] 1,200 mg PO BID 4 Days #8 tbbp.12hr Oseltamivir [Tamiflu] 75 mg PO BID 2 Days #4 capsule predniSONE [PredniSONE] 10 mg PO DAILY 3 Days #7 tablet Home Medications: Temazepam [Restoril] 15 mg PO HS 11/08/15 [History] Albuterol Sulfate [Proair Hfa] 2 puff IH Q6H PRN 12/02/18 [History] Benzonatate [Tessalon] 200 mg PO TID PRN 4 Days #12 capsule 12/06/18 [Rx] GuaiFENesin ER [Mucinex] 1,200 mg PO BID 4 Days #8 tbbp.12hr 12/06/18 [Rx] Oseltamivir [Tamiflu] 75 mg PO BID 2 Days #4 capsule 12/06/18 [Rx] Warfarin [Coumadin] 2.5 mg PO DAILY #0 12/06/18 [Rx] predniSONE [PredniSONE] 10 mg PO DAILY 3 Days #7 tablet 12/06/18 [Rx] Allergies/Adverse Reactions: Allergy/AdvReac Type Severity Reaction Status Date / Time No Known Allergies Allergy Verified 10/13/18 09:00 Date of admission: 12/04/18 17:36 Primary care physician: Kristen Jarrell CNP Consults: 12/04/18 09:56 Consult to Physical Therapy [CONS] Routine Comment: Evaluate, develop and implement POC Reason for Consult: easily fatigued with exertion Does patient have active BEDREST order?: No Is patient medically & hemodynamically stable?: Yes OT [Consult to Occupational Therapy] [CONS] Routine Comment: Evaluate, develop and implement POC Reason for Consult: less energy to perform tasks Does patient have active BEDREST order?: No Is patient medically & hemodynamically stable?: Yes 12/04/18 14:22 Consult to Pacs Specialist [CONS] Routine Reason for SW Consult: Lives with son who was recently diagnosed with liver cancer. May need some assistance at home. Discharging clinician: Valarie Holley Anticipated date of discharge: 12/06/18 - Constitutional Vitals: Temp Pulse Resp BP Pulse Ox 97.9 F 39 18 138/54 96 12/06/18 08:00 12/06/18 08:00 12/06/18 08:00 12/06/18 08:00 12/06/18 08:00 General appearance: Present: A&O X 3, no acute distress Exam: General: no acute distress, comfortable in bed HEENT: Head atraumatic, normocephalic, moist mucus membrane Neck: no tracheal deviation Cardiovascualr: Regular rhythm, no pedal edema, no murmurs or gallops Lungs: Clear to auscultation no wheezing, rhonchi or rales Abdomen: Soft nontender, nondistended positive bowel sounds Skin: warm and dry, absent rash, absent open wounds and nodules MSK: absent clubbing, cyanosis, joints without swelling Neuro: alert and oriented x 3 Psych: Thought content congruent - Head Head exam: Present: atraumatic, normocephalic - Eye Eye exam: Present: EOMI, sclera anicteric - ENT ENT exam: Present: mucous membranes moist - Neck Neck exam general surgery: Present: full ROM, trachea midline - Respiratory Respiratory exam: Present: CTAB. Absent: rhonchi, stridor, wheezes - Cardiovascular Cardiovascular exam: Present: RRR, +S1, +S2 - GI/Abdominal GI/Abdominal exam: Present: normal bowel sounds, soft. Absent: distended, firm - Extremities Exam Extremities exam: Present: warm. Absent: pedal edema, tenderness - Psychiatric Psychiatric exam: Present: normal affect, normal mood - Skin Skin exam: Present: intact, warm - Patient Status Disposition: Home, Self-Care Condition: Good Overall status at discharge: patient is progressing back to baseline - Discharge Instructions Instructions: Benzonatate (By mouth), Prednisone (By mouth), Guaifenesin (By mouth), Oseltamivir (By mouth) Follow Up With: Clinic, Anticoagulation Management [Other] - 12/08/18 9:45 am (Please bring your photo ID,insurance card and all medication bottles.Plan for your first appointment to last 45mins to 1 hrs. Thank you!) Kristen Jarrell CNP [Primary Care Provider] - (Office will call you with your appointmemt date and time. Thank you!) - Diet and Activity Activity: increase activity as tolerated <Ghanem,Triston Rheem - Last Filed: 12/06/18 18:46> Date of Encounter: 12/06/18 - Discharge Diagnosis (1) History of DVT (deep vein thrombosis) Status: Acute (2) Hypertension Status: Acute Qualifiers: Hypertension type: essential hypertension Qualified Code(s): I10 - Essential (primary) hypertension (3) Acute respiratory distress Status: Resolved (4) DVT prophylaxis Status: Acute (5) Influenza A (H1N1) Status: Acute Hospital course: Ms. Radford is a 83 year old female - Time Spent with Patient Total time spent providing and/or coordinating discharge services: Date of admission: 12/04/18 17:36 Primary care physician: Kristen Jarrell CNP Consults: 12/04/18 09:56 Consult to Physical Therapy [CONS] Routine Comment: Evaluate, develop and implement POC Reason for Consult: easily fatigued with exertion Does patient have active BEDREST order?: No Is patient medically & hemodynamically stable?: Yes OT [Consult to Occupational Therapy] [CONS] Routine Comment: Evaluate, develop and implement POC Reason for Consult: less energy to perform tasks Does patient have active BEDREST order?: No Is patient medically & hemodynamically stable?: Yes 12/04/18 14:22 Consult to Pacs Specialist [CONS] Routine Reason for SW Consult: Lives with son who was recently diagnosed with liver cancer. May need some assistance at home. - Constitutional Vitals: Temp Pulse Resp BP Pulse Ox 97.9 F 39 18 138/54 96 12/06/18 08:00 12/06/18 08:00 12/06/18 08:00 12/06/18 08:00 12/06/18 09:11 - Attending Attestation I examined this patient and my medical decision-making was reviewed with the Resident Physician. I agree with the documented findings, disposition and treatment plan as described except to the extent set forth below. 83 year old female with history of DVTs on coumadin presented to ED for fatigue. Patient tested Flu A positive. She was admitted as she was mildly hypoxic in the ED. She required O2 treatment and supportive care here. She was able to wean off O2 to room air. Symptomatically improved, energy, and appetite are improved. Patient had supratherapeutic INR likely from doses of antibiotics. Coumadin instructed to be held and rechecked.
[2018-12-06] MEDS: predniSONE 20 MG TABLET PO SCH (09:09)
[2018-12-06] MEDS: Azithromycin 250 MG TABLET PO SCH (09:09)
== END 2018-12-06 11:16 | disposition home or self-care (01) | DRG 195 ==
LOC: EMEROOARM 14:28 → 2ANU 14:28 → SUATTDRO 19:17 → 2ANU 20:07
PROVIDERS: ADMIT Internal Medicine; ATTEND Student in an Organized Health Care Education/Training Program